=== PATIENT | female | born 1995 | race Caucasian/White ===

== ENCOUNTER 2016-09-12 21:02 | Emergency (ER) | payer OTHER ==
--- NOTE | 2016-09-12 22:06 | ER Document Report ---
ED Medical Screen (RME) - General Chief Complaint: Flank Pain Stated Complaint: URINARY ISSUE Time seen by provider: 22:05 Mode of Arrival: Ambulatory Information source: Patient Notes: 20-year-old female presents to ED for left flank pain for a week now. States she went to [facility] on and they told her it was just muscle pain but the pain is gotten worse since then. States she feels like she has to urinate frequently but does not go. Last menstrual period 08/27/2016 I have greeted and performed a rapid initial assessment of this patient. A comprehensive ED assessment and evaluation of the patient, analysis of test results and completion of medical decision making process will be conducted by an additional ED providers. TRAVEL OUTSIDE OF THE [place] IN LAST 30 DAYS: No - Related Data Allergies/Adverse Reactions: No Known Allergies Allergy (Verified 05/24/14 02:01) Past Medical History Pulmonary Medical History: Reports: Hx Asthma Neurological Medical History: Reports: Hx Migraine Musculoskeltal Medical History: Reports Hx Arthritis, Reports Hx Musculoskeletal Deformity Psychiatric Medical History: Reports: Hx Anxiety, Hx Attention Deficit Hyperactivity Disorder, Hx Bipolar Disorder, Hx Depression, Hx Obsessive Compulsive Disorder Past Surgical History: Reports: Hx Adenoidectomy, Hx Tonsillectomy - Immunizations Immunizations up to date: Yes Hx Diphtheria, Pertussis, Tetanus Vaccination: Yes Physical Exam - Vital signs Vitals: Temp Pulse Resp BP Pulse Ox 98.2 F 101 H 16 130/85 H 97 09/12/16 21:58 09/12/16 21:58 09/12/16 21:58 09/12/16 21:58 09/12/16 21:58 Course - Vital Signs Vital signs: Temp Pulse Resp BP Pulse Ox 98.2 F 101 H 16 130/85 H 97 09/12/16 21:58 09/12/16 21:58 09/12/16 21:58 09/12/16 21:58 09/12/16 21:58
[2016-09-12] MEDS ORDERED: IBUPROFEN 800 MG TABLET PO ONE (22:07)
[2016-09-12 22:32] LABS: ABSOLUTE EOSINOPHILS # (AUTO) 0.1 10^3/uL (0.0-0.6); ABSOLUTE LYMPHOCYTES (AUTO) 2.5 10^3/uL (0.5-4.7); ABSOLUTE MONOCYTES (AUTO) 0.6 10^3/uL (0.1-1.4); ABSOLUTE NEUT (AUTO) 8.9 10^3/uL (1.7-8.2); BASOPHILS % (AUTO) 0.3 % (0-2); EOSINOPHILS % (AUTO) 0.9 % (0-6); HEMATOCRIT 41.3 % (36.0-47.0); HEMOGLOBIN 13.7 g/dL (12.0-15.5); HGB HCT DIFFERENCE -0.2; LYMPHOCYTES % (AUTO) 20.5 % (13-45); MEAN CORPUSCULAR HEMOGLOBIN 29.1 pg (27.0-33.4); MEAN CORPUSCULAR HGB CONC 33.1 g/dL (32.0-36.0); MEAN CORPUSCULAR VOLUME 88 fl (80-97); RED BLOOD COUNT 4.71 10^6/uL (3.72-5.28); RED CELL DISTRIBUTION WIDTH 12.8 % (11.5-14.0); SEGMENTED NEUTROPHILS % (AUTO) 73.3 % (42-78); WHITE BLOOD COUNT 12.2 10^3/uL (4.0-10.5)
[2016-09-12 22:44] LABS: APPEARANCE,URINE SLIGHTLY-CLOUDY; BILIRUBIN,URINE NEGATIVE (NEGATIVE); GLUCOSE, URINE NEGATIVE (NEGATIVE); KETONES,URINE NEGATIVE (NEGATIVE); LEUKOCYTE ESTERASE,URINE MODERATE (NEGATIVE); NITRITE,URINE NEGATIVE (NEGATIVE); PROTEIN,URINE NEGATIVE (NEGATIVE); URINE SPECIFIC GRAVITY 1.025
[2016-09-12 22:52] LABS: ALANINE AMINOTRANSFERASE 33 U/L (9-52); ALBUMIN 4.6 g/dL (3.5-5.0); ALKALINE PHOSPHATASE 77 U/L (38-126); ANION GAP 12 (5-19); ASPARTATE AMINO TRANSFERASE 21 U/L (14-36); BILIRUBIN,TOTAL 0.5 mg/dL (0.2-1.3); BLOOD UREA NITROGEN 11 mg/dL (7-20); CARBON DIOXIDE 28 mmol/L (22-30); CHLORIDE 102 mmol/L (98-107); CREATININE RESULT 0.79 mg/dL (0.52-1.25); GLUCOSE 95 mg/dL (75-110); POTASSIUM 4.4 mmol/L (3.6-5.0); SODIUM 141.8 mmol/L (137-145); TOTAL PROTEIN 7.5 g/dL (6.3-8.2)
[2016-09-13] MEDS ORDERED: CEPHALEXIN 500 MG CAPSULE PO ONE (00:46)
[2016-09-13] MEDS ORDERED: HYDROCODONE/ACETAMINOPHEN 5-325 MG 6 TAB/DSPK PO PRN (00:47)
--- NOTE | 2016-09-13 00:47 | ER Document Report ---
ED General - General Mode of Arrival: Ambulatory Information source: Patient TRAVEL OUTSIDE OF THE [place] IN LAST 30 DAYS: No - HPI Patient complains to provider of: Left flank pain Onset: Other - 1 week ago Associated symptoms: Other - see above <DUSTIN LYLES - Last Filed: 09/13/16 01:57> <SHADIAJONA CARLOS - Last Filed: 09/13/16 03:25> - General Chief Complaint: Back Pain Stated Complaint: URINARY ISSUE Notes: 20 year old female with history of UTIs presents to the ED complaining of left flank pain that started 1 week ago. Patient was seen at [facility] 5 days ago and started on muscle relaxers that did not help. Patient is additionally complaining of urinary frequency with small amounts of urine, but states that her symptoms do no feel like her past UTIs because she is not experiencing any dysuria. Patient is also complaining of left knee pain. (DUSTIN LYLES) - Related Data Allergies/Adverse Reactions: No Known Allergies Allergy (Verified 05/24/14 02:01) Past Medical History - General Information source: Patient - Social History Smoking Status: Unknown if Ever Smoked Family History: Reviewed & Not Pertinent Pulmonary Medical History: Reports: Hx Asthma Neurological Medical History: Reports: Hx Migraine Renal/ Medical History: Reports: Other - UTIs Musculoskeltal Medical History: Reports Hx Arthritis, Reports Hx Musculoskeletal Deformity Psychiatric Medical History: Reports: Hx Anxiety, Hx Attention Deficit Hyperactivity Disorder, Hx Bipolar Disorder, Hx Depression, Hx Obsessive Compulsive Disorder Past Surgical History: Reports: Hx Adenoidectomy, Hx Tonsillectomy - Immunizations Immunizations up to date: Yes Hx Diphtheria, Pertussis, Tetanus Vaccination: Yes <DUSTIN LYLES - Last Filed: 09/13/16 01:57> Review of Systems - Review of Systems Constitutional: No symptoms reported EENT: No symptoms reported Cardiovascular: No symptoms reported Respiratory: No symptoms reported Gastrointestinal: No symptoms reported Genitourinary: See HPI, Frequency, Flank pain - left. denies: Dysuria Female Genitourinary: No symptoms reported Musculoskeletal: No symptoms reported Skin: No symptoms reported Hematologic/Lymphatic: No symptoms reported Neurological/Psychological: No symptoms reported -: Yes All other systems reviewed and negative <DUSTIN LYLES - Last Filed: 09/13/16 01:57> Physical Exam - Vital signs Interpretation: Normal - General General appearance: Alert In distress: None - HEENT Head: Normocephalic, Atraumatic Eyes: Normal Extraocular movements intact: Yes Pupils: PERRL - Respiratory Respiratory status: No respiratory distress Breath sounds: Normal - Cardiovascular Rhythm: Regular Heart sounds: Normal auscultation - Abdominal Inspection: Normal Distension: No distension Tenderness: Nontender - Back Back: Tender - Paraspinal tenderness to palpation on the left side at L4 and L5. Tenderness to palpation of the left SI joint.. No: Normal - Extremities General upper extremity: Normal inspection, Normal ROM General lower extremity: Normal inspection, Normal ROM - Neurological Neuro grossly intact: Yes Cognition: Normal Orientation: AAOx4 [place] Coma Scale Eye Opening: Spontaneous [place] Coma Scale Verbal: Oriented [place] Coma Scale Motor: Obeys Commands [place] Coma Scale Total: 15 Speech: Normal - Psychological Associated symptoms: Normal affect, Normal mood - Skin Skin Temperature: Warm Skin Moisture: Dry Skin Color: Normal <DUSTIN LYLES - Last Filed: 09/13/16 01:57> Course - Laboratory Result Diagrams: 09/12/16 22:15 09/12/16 22:15 <DUSTIN LYLES - Last Filed: 09/13/16 01:57> - Laboratory Result Diagrams: 09/12/16 22:15 09/12/16 22:15 <JONA RENO - Last Filed: 09/13/16 03:25> - Re-evaluation Re-evalutation: 09/13/16 Patient with reproducible left-sided back pain. No paresthesias or weakness. No urinary retention. Patient does have some bacteria and has a history of UTIs. She has had frequency but no burning. Culture will be sent. Patient was started on Keflex. She also be given pain medication for her back. Follow- up with PMD. Return if any worsening or concerning symptoms. No evidence for intraspinal pathology at this time. (JONA RENO) - Vital Signs Vital signs: Temp Pulse Resp BP Pulse Ox 97.3 F 91 14 121/73 98 09/13/16 00:59 09/13/16 00:59 09/13/16 00:59 09/13/16 00:59 09/13/16 00:59 (DUSTIN LYLES) (JONA RENO) - Laboratory Laboratory results interpreted by me: 09/12/16 09/12/16 22:15 22:15 WBC 12.2 H Absolute Neutrophils 8.9 H Urine Urobilinogen 2.0 H Ur Leukocyte Esterase MODERATE H (DUSTIN LYLES) (JONA RENO) Discharge <DUSTIN LYLES - Last Filed: 09/13/16 01:57> <JONA RENO - Last Filed: 09/13/16 03:25> - Discharge Clinical Impression: UTI (urinary tract infection) Qualifiers: Urinary tract infection type: site unspecified Hematuria presence: without hematuria Qualified Code(s): N39.0 - Urinary tract infection, site not specified Back pain Qualifiers: Back pain location: low back pain Chronicity: acute Back pain laterality: left Sciatica presence: without sciatica Qualified Code(s): M54.5 - Low back pain Condition: Stable Disposition: HOME, SELF-CARE Instructions: Urinary Tract Infection ([facility]), Low Back Pain ([facility]) Prescriptions: Oxycodone HCl/Acetaminophen [Percocet 5-325 mg Tablet] 1 - 2 tab PO Q6HP PRN # 20 tablet PRN Reason: Cephalexin Monohydrate [Keflex 500 mg Capsule] 500 mg PO QID #30 capsule Forms: Return to Work Scribe Attestation: 09/13/16 03:25 I personally performed the services described in the documentation, reviewed and edited the documentation which was dictated to the scribe in my presence, and it accurately records my words and actions. (JONA RENO) Scribe Documentation - Scribe Written by Panibe:: Niranjan Dasilva, 09/13/2016 2:04 acting as scribe for :: Shadia <DUSTIN LYLES - Last Filed: 09/13/16 01:57>
[2016-09-13 01:04] VITALS: BP 121/73
== END 2016-09-13 01:03 | disposition home or self-care (01) ==
LOC: ER 21:02
DX: N39.0 Urinary tract infection, site not specified (principal); M54.5 Low back pain; M54.9 Dorsalgia, unspecified; R39.198 Other difficulties with micturition; R35.0 Frequency of micturition
CPT/HCPCS: 36415; 80053; 81001; 84703; 85025; 87086; 99283

== ENCOUNTER 2016-09-16 03:27 | Emergency (ER) | payer OTHER ==
[2016-09-16 04:57] LABS: APPEARANCE,URINE SLIGHTLY-CLOUDY; BILIRUBIN,URINE NEGATIVE (NEGATIVE); GLUCOSE, URINE NEGATIVE (NEGATIVE); KETONES,URINE NEGATIVE (NEGATIVE); LEUKOCYTE ESTERASE,URINE LARGE (NEGATIVE); NITRITE,URINE NEGATIVE (NEGATIVE); PROTEIN,URINE NEGATIVE (NEGATIVE); URINE SPECIFIC GRAVITY 1.027; UROBILINOGEN,URINE NEGATIVE mg/dL (<2.0)
[2016-09-16] MEDS ORDERED: LEVOFLOXACIN 750 MG TABLET PO ONE (05:08)
--- NOTE | 2016-09-16 05:09 | ER Document Report ---
ED GI/ - General Chief Complaint: Flank Pain Stated Complaint: FLANK PLAIN, URINARY PROBLEMS Time seen by provider: 05:00 Notes: Patient is a 20-year-old female that comes emergency department for chief complaint of dysuria, she states that she also has pain in her left abdomen/ pelvic area, she also states that she started to get lower back pain. She states that she was treated recently for urinary tract infection and had been doing better until today. Patient states she typically gets 2-3 urinary tract infections a year. She denies any vaginal bleeding or discharge, any STD exposure. Past medical history of PCOS. TRAVEL OUTSIDE OF THE [place] IN LAST 30 DAYS: No - Related Data Allergies/Adverse Reactions: No Known Allergies Allergy (Verified 09/16/16 05:15) Past Medical History - General Information source: Patient - Social History Smoking Status: Current Every Day Smoker Chew tobacco use (# tins/day): No Frequency of alcohol use: Social Drug Abuse: None Lives with: Family Family History: Reviewed & Not Pertinent Patient has suicidal ideation: No Patient has homicidal ideation: No Pulmonary Medical History: Reports: Hx Asthma Neurological Medical History: Reports: Hx Migraine Renal/ Medical History: Denies: Hx Peritoneal Dialysis Musculoskeltal Medical History: Reports Hx Arthritis, Reports Hx Musculoskeletal Deformity Psychiatric Medical History: Reports: Hx Anxiety, Hx Attention Deficit Hyperactivity Disorder, Hx Bipolar Disorder, Hx Depression, Hx Obsessive Compulsive Disorder Past Surgical History: Reports: Hx Adenoidectomy, Hx Tonsillectomy - Immunizations Immunizations up to date: Yes Hx Diphtheria, Pertussis, Tetanus Vaccination: Yes Review of Systems - Review of Systems Constitutional: No symptoms reported EENT: No symptoms reported Cardiovascular: No symptoms reported Respiratory: No symptoms reported Gastrointestinal: See HPI Genitourinary: See HPI Female Genitourinary: See HPI Musculoskeletal: No symptoms reported Skin: No symptoms reported Hematologic/Lymphatic: No symptoms reported Neurological/Psychological: No symptoms reported Physical Exam - Vital signs Vitals: Temp Pulse Resp BP Pulse Ox 98.5 F 86 18 131/84 H 98 09/16/16 03:35 09/16/16 03:35 09/16/16 03:35 09/16/16 03:35 09/16/16 03:35 Interpretation: Normal - General General appearance: Appears well, Alert In distress: None - HEENT Head: Normocephalic, Atraumatic Eyes: Normal Pupils: PERRL - Respiratory Respiratory status: No respiratory distress Chest status: Nontender Breath sounds: Normal Chest palpation: Normal - Cardiovascular Rhythm: Regular Heart sounds: Normal auscultation Murmur: No - Abdominal Inspection: Normal Distension: No distension Bowel sounds: Normal Tenderness: Tender - Tender in the suprapubic and left lower quadrant areas. No : Moreira's sign, Guarding - Back Back: Normal, Nontender. No: Tender - Extremities General upper extremity: Normal inspection, Nontender, Normal color, Normal ROM , Normal temperature General lower extremity: Normal inspection, Nontender, Normal color, Normal ROM , Normal temperature, Normal weight bearing. No: Jaquan's sign - Neurological Neuro grossly intact: Yes Cognition: Normal Orientation: AAOx4 [place] Coma Scale Eye Opening: Spontaneous [place] Coma Scale Verbal: Oriented [place] Coma Scale Motor: Obeys Commands [place] Coma Scale Total: 15 Speech: Normal Motor strength normal: LUE, RUE, LLE, RLE Sensory: Normal - Psychological Associated symptoms: Normal affect, Normal mood - Skin Skin Temperature: Warm Skin Moisture: Dry Skin Color: Normal Course - Re-evaluation Re-evalutation: Patient appears somewhat uncomfortable on examination, soft abdomen except for the suprapubic and left lower quadrant area, patient declines a pelvic exam. Vital signs unremarkable. Urinalysis shows large leukocyte esterase, some white blood cells, some squamous epithelials. Culture placed. Patient will be treated because of her symptoms of dysuria. Ultrasound performed, shows no cyst or torsion, shows no other abnormality. Discussed with Dr. Ortiz per [facility] guidelines. Patient very satisfied with this workup. No significant hematuria, flank pain, or history of stones. Patient states she'll follow-up with primary care and return for any concerning or worsening symptoms including vomiting, fever, severe abdominal pain etc. - Vital Signs Vital signs: Temp Pulse Resp BP Pulse Ox 97.6 F 79 14 104/61 96 09/16/16 07:16 09/16/16 07:16 09/16/16 07:16 09/16/16 07:16 09/16/16 07:16 - Laboratory Laboratory results interpreted by me: 09/16/16 04:41 Ur Leukocyte Esterase LARGE H Discharge - Discharge Clinical Impression: Dysuria, Lower abdominal pain Disposition: HOME, SELF-CARE Additional Instructions: Ultrasound shows no acute abnormalities. We have a urine culture growing in our lab, take the antibiotic as directed, take pain medication if needed. Return the emergency department immediately for any concerning or worsening symptoms including fever, vomiting, severe pain, etc. Prescriptions: Hydrocodone/Acetaminophen [Vidalia 5-325 mg Tablet] 1 - 2 tab PO ASDIR #12 tablet Levofloxacin [Levaquin 750 mg Tablet] 750 mg PO DAILY #5 tablet Referrals: BURAK KOWALSKI MD [Primary Care Provider] - Follow up as needed
[2016-09-16] MEDS ORDERED: OXYCODONE-ACETAMINOPHEN 5-325 MG TABLET PO ONE (05:19)
[2016-09-16 07:19] VITALS: BP 104/61
== END 2016-09-16 07:20 | disposition home or self-care (01) ==
LOC: ER 03:27
DX: E28.2 Polycystic ovarian syndrome (principal); R10.2 Pelvic and perineal pain; R10.814 Left lower quadrant abdominal tenderness; R30.0 Dysuria; J45.909 Unspecified asthma, uncomplicated; F17.200 Nicotine dependence, unspecified, uncomplicated; Z87.440 Personal history of urinary (tract) infections
CPT/HCPCS: 76830; 81001; 81025; 87086; 93976; 99284

== ENCOUNTER 2016-11-14 01:09 | Emergency (ER) | payer OTHER ==
[2016-11-14 01:54] VITALS: BP 123/67
== END 2016-11-14 06:43 | disposition left against medical advice (07) ==
LOC: ER 01:09
DX: Z53.9 Procedure and treatment not carried out, unspecified reason (principal); H92.02 Otalgia, left ear

== ENCOUNTER 2017-06-17 21:10 | Emergency (ER) | payer SELFPAY ==
[2017-06-17 21:14] VITALS: BP 132/89
--- NOTE | 2017-06-17 22:02 | ER Document Report ---
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 Patient states that the pain was not immediate, but started building up thereafter. Patient states that the pain is primarily to the left wrist and radiates distally on occasion. Patient states that she can still move her wrist and fingers range of motion without any difficulties. She has not taken anything for her pain. Patient has occasional tingling into her fingers. patient denies any drug allergies. She admits to smoking but denies any IV drug use. Denies any headache, fever, chest pain, palpitations, syncope , cough, shortness of breath, wheeze, dyspnea, abdominal pain, nausea/vomiting/ diarrhea, muscle paralysis/weakness, or rash. - ROS Notes: REVIEW OF SYSTEMS: CONSTITUTIONAL : Denies fever, chills, or sweats. Denies recent illness. EENT: Denies eye, ear, throat, or mouth pain or symptoms. Denies nasal or sinus congestion or discharge. Denies throat, tongue, or mouth swelling or difficulty swallowing. CARDIOVASCULAR: Denies chest pain. Denies palpitations RESPIRATORY: Denies cough, cold, or chest congestion. Denies shortness of breath, difficulty breathing, or wheezing. MUSCULOSKELETAL: see hpi SKIN: Denies rash, lesions or sores. NEUROLOGICAL: Denies confusion or altered mental status. Denies passing out or loss of consciousness. Denies dizziness or lightheadedness. Denies headache. Denies weakness or paralysis or loss of use of either side. Denies problems with gait or speech. Denies sensory loss, numbness, or tingling. ALL OTHER SYSTEMS REVIEWED AND NEGATIVE. Dictation was performed using [employer] voice recognition software - REPRODUCTIVE Reproductive: DENIES: : - DERM Skin Color: Normal Past Medical History - Social History Smoking Status: Current Every Day Smoker Family History: Reviewed & Not Pertinent Patient has suicidal ideation: No Patient has homicidal ideation: No Pulmonary Medical History: Reports: Hx Asthma Neurological Medical History: Reports: Hx Migraine Renal/ Medical History: Reports: Hx Kidney Stones. Denies: Hx Peritoneal Dialysis Musculoskeltal Medical History: Reports Hx Arthritis, Reports Hx Musculoskeletal Deformity Psychiatric Medical History: Reports: Hx Anxiety, Hx Attention Deficit Hyperactivity Disorder, Hx Bipolar Disorder, Hx Depression, Hx Obsessive Compulsive Disorder Past Surgical History: Reports: Hx Adenoidectomy, Hx Tonsillectomy - Immunizations Immunizations up to date: Yes Hx Diphtheria, Pertussis, Tetanus Vaccination: Yes Vertical Provider Document - CONSTITUTIONAL Agree With Documented VS: Yes Notes: PHYSICAL EXAMINATION: GENERAL: Well-appearing, well-nourished and in no acute distress. Neck: Nontender. FROM. LUNGS: Breath sounds clear to auscultation bilaterally and equal. No wheezes rales or rhonchi. HEART: Regular rate and rhythm without murmurs, rubs, gallops. Musculoskeletal: Lt wrist: FROM to passive/active. Strength 5+/5. No obvious swelling or ecchymosis noted. No obvious deformity. + tenderness to the distal forearm/wrist b/l. + herber. N/V intact distal. No scaphoid tenderness. No bony tenderness of the hands/fingers or prox to the distal wrist. Extremities: No cyanosis, clubbing, or edema b/l. Peripheral pulses 2+. Capillary refill less than 3 seconds. NEUROLOGICAL: Normal speech, normal gait. Normal sensory, motor exams PSYCH: Normal mood, normal affect. SKIN: Warm, Dry, normal turgor, no rashes or lesions noted. - INFECTION CONTROL TRAVEL OUTSIDE OF THE [place] IN LAST 30 DAYS: No - RESPIRATORY O2 Sat by Pulse Oximetry: 100 Course - Re-evaluation Re-evalutation: 06/17/17 22:39 Patient is an afebrile, well-hydrated, 21-year-old female who presents to the ED with left wrist pain, I suspect de Quervain's tenosynovitis based on H&P today. Vitals are stable. PE is otherwise unremarkable for any neurovascular compromise, obvious ligament/tendon rupture, obvious fracture or dislocation. X -ray was unremarkable for any acute pathology. I will send her home with a prescription for Voltaren gel. Conservative measures otherwise for symptoms. Recheck with your PCM later this week. Consider consult with Ortho/physical therapy for ongoing/worsening symptoms. Patient is in agreement. - Vital Signs Vital signs: Temp Pulse Resp BP Pulse Ox 91 18 132/89 H 100 06/17/17 21:11 06/17/17 21:11 06/17/17 21:11 06/17/17 21:11 Discharge - Discharge Clinical Impression: Left wrist pain Condition: Stable Disposition: HOME, SELF-CARE Instructions: Wrist Sprain ([facility]), Ice & Elevation ([facility]), Warm Packs ([facility]) Additional Instructions: Rest, Ice, Compression, Elevation Tylenol/ibuprofen as needed Light stretches daily Strength exercises as able Moist heat and massage may help F/u with your PCP in 3-5 days for a recheck Consider consult(s) with Orthopedics/physical therapy for ongoing/worsening symptoms Return to the ED with any worsening symptoms and/or development of fever, headache, chest pain, palpitations, syncope, shortness of breath, trouble breathing, abdominal pain, n/v/d, muscle weakness/paralysis, numbness/tingling, swelling, redness, or other worsening symptoms that are concerning to you. Prescriptions: Diclofenac Sodium [Voltaren] 4 gm TP QID PRN #100 gel..gm. PRN Reason: Forms: Elevated Blood Pressure, Smoking Cessation Education Referrals: BURAK KOWALSKI MD [Primary Care Provider] - Follow up as needed [facility] [Provider Group] - Follow up as needed
--- NOTE | 2017-06-17 22:28 | RADIOLOGY REPORT (SQ) ---
EXAM DESCRIPTION: WRIST LEFT 3 VIEWS COMPLETED DATE/TIME: 06/17/2017 10:20 pm REASON FOR STUDY: left wrist pain COMPARISON: None. NUMBER OF VIEWS: Three views. TECHNIQUE: AP, lateral, and oblique radiographic images acquired of the left wrist. LIMITATIONS: None. FINDINGS: MINERALIZATION: Normal. BONES: No acute fracture or dislocation. No worrisome bone lesions. Normal alignment. SOFT TISSUES: No soft tissue swelling. No foreign body. OTHER: No other significant finding. IMPRESSION: NEGATIVE STUDY OF THE LEFT WRIST. NO RADIOGRAPHIC EVIDENCE OF ACUTE INJURY. TECHNICAL DOCUMENTATION: JOB ID: [id number] [employer]- All Rights Reserved
== END 2017-06-17 23:00 | disposition home or self-care (01) ==
LOC: ER 21:10
DX: M25.532 Pain in left wrist (principal); R20.2 Paresthesia of skin; F17.200 Nicotine dependence, unspecified, uncomplicated; J45.909 Unspecified asthma, uncomplicated
CPT/HCPCS: 99283

== ENCOUNTER 2018-04-10 03:46 | Emergency (ER) | payer SELFPAY ==
[2018-04-10 04:02] VITALS: BP 129/89
--- NOTE | 2018-04-10 06:14 | ER Document Report ---
ED ENT <LUZ GARCIA - Last Filed: 04/10/18 06:35> - General TRAVEL OUTSIDE OF THE [place] IN LAST 30 DAYS: No <VALERIA SEGURA - Last Filed: 04/10/18 06:39> - General Chief Complaint: Ear Pain Stated Complaint: EAR PAIN Time Seen by Provider: 04/10/18 06:05 Notes: 22-year-old female patient complaining of over 3 week history of right ear discomfort. She reports it started as a pressure type discomfort and is gotten progressively worse over time. It got acutely worse last night and she has noted that her hearing seems to have decreased some. She states that her father put some earwax removal drops in the ear last night, and then placed an ear pain or numbing solution which did not help and possibly hurt worse. She states she has not used Q-tips in over a year. She has not been swimming or in water or pools. There is no fever, nausea or vomiting. (LUZ GARCIA) - Related Data Allergies/Adverse Reactions: No Known Allergies Allergy (Verified 09/16/16 05:15) Past Medical History - General Information source: Patient - Social History Smoking Status: Current Every Day Smoker Cigarette use (# per day): Yes - 1/2ppd Frequency of alcohol use: Social - x2 a week Family History: Reviewed & Not Pertinent Patient has suicidal ideation: No Patient has homicidal ideation: No Pulmonary Medical History: Reports: Hx Asthma Neurological Medical History: Reports: Hx Migraine - "in the past" Renal/ Medical History: Reports: Hx Kidney Stones Musculoskeletal Medical History: Reports Hx Arthritis, Reports Hx Musculoskeletal Deformity Psychiatric Medical History: Reports: Hx Anxiety, Hx Attention Deficit Hyperactivity Disorder, Hx Bipolar Disorder, Hx Depression, Hx Obsessive Compulsive Disorder Past Surgical History: Reports: Hx Adenoidectomy, Hx Tonsillectomy - Immunizations Immunizations up to date: Yes Hx Diphtheria, Pertussis, Tetanus Vaccination: Yes <VALERIA SEGURA - Last Filed: 04/10/18 06:39> Review of Systems - Review of Systems Constitutional: No symptoms reported EENT: See HPI, Ear pain - right Cardiovascular: No symptoms reported Respiratory: No symptoms reported Gastrointestinal: No symptoms reported Genitourinary: No symptoms reported Female Genitourinary: No symptoms reported Musculoskeletal: No symptoms reported Skin: No symptoms reported Hematologic/Lymphatic: No symptoms reported Neurological/Psychological: No symptoms reported -: Yes All other systems reviewed and negative <VALERIA SEGURA - Last Filed: 04/10/18 06:39> Physical Exam - HEENT Head: Normocephalic, Atraumatic Eyes: Normal Pupils: PERRL External canal: Other - Right ear external canal is tender to manipulate, and painful to insert the ear speculum. There is no definite inflamed area, temples , or other lesions noted. There is some dry wax. The canal in general appears dry and there is no evidence of fungal type infection noted on the TM. Tympanic membrane: Other - Both TMs are extensively scarred consistent with childhood infections and perforations. Pharynx: Normal Neck: Normal. No: Lymphadenopathy <LUZ GARCIA - Last Filed: 04/10/18 06:35> <VALERIA SEGURA - Last Filed: 04/10/18 06:39> - Vital signs Vitals: Temp Pulse Resp BP Pulse Ox 99.3 F 111 H 16 129/89 H 97 04/10/18 03:51 04/10/18 03:51 04/10/18 03:51 04/10/18 03:51 04/10/18 03:51 - Notes Notes: Physical Exam: General: Alert, appears well. HEENT: Normocephalic. Atraumatic. PERRL. Extraocular movements intact. Oropharynx clear. Neck: Supple. Non-tender. Respiratory: No respiratory distress. Clear and equal breath sounds bilaterally. Cardiovascular: Regular rate and rhythm. Abdominal: Obese. Non-tender. No distension. Normal Bowel Sounds. Back: Non-tender. No deformity or step off. Extremities: Moves all four extremities. Upper extremities: Normal inspection. Normal ROM. Lower extremities: Normal inspection. No edema. Normal ROM. Neurological: Normal cognition. AAOx4. Normal speech. Psychological: Normal affect. Normal Mood. Skin: Warm. Dry. Normal color. (VALERIA SEGURA) - Vital Signs Vital signs: Temp Pulse Resp BP Pulse Ox 99.3 F 111 H 16 129/89 H 97 04/10/18 03:51 04/10/18 03:51 04/10/18 03:51 04/10/18 03:51 04/10/18 03:51 Discharge <LUZ GARCIA - Last Filed: 04/10/18 06:35> <VALERIA SEGURA - Last Filed: 04/10/18 06:39> - Discharge Clinical Impression: Otitis externa of right ear Qualifiers: Otitis externa type: unspecified type Chronicity: acute Qualified Code(s): H60.501 - Unspecified acute noninfective otitis externa, right ear Condition: Stable Disposition: HOME, SELF-CARE Additional Instructions: Otitis Externa You have otitis externa -- an infection of the outer ear canal. This can be very painful. It's sometimes called "swimmer's ear," because it often occurs after prolonged water exposure. Many things, such as earwax and dirt in the ear, can contribute to it. The usual treatment is antibiotic/antiinflammatory ear drops. Occasionally , a wick will be placed in the ear to draw in the medicine. If the infection is severe, an oral antibiotic may be prescribed. Pain medication is often needed. Avoid getting water in the ear. Outer ear infections often take longer to heal than you might expect. Some tenderness and ache in the ear may persist for about two weeks. See your physician if you fail to improve as expected. Call the doctor at once if you develop fever, increasing swelling (particularly if it makes your ear "poke out"), severe headache, stiff neck, or decreased hearing. Place 4 drops of the antibiotic eardrop suspension into the right ear and place cotton wick 4 times daily. Take the antibiotics as prescribed. Try Tylenol and ibuprofen or Aleve for pain relief. Follow-up with a local ear nose and throat doctor if not improving. Prescriptions: Cephalexin Monohydrate [Keflex 500 mg Capsule] 500 mg PO QID #28 capsule Referrals: BURAK KOWALSKI MD [Primary Care Provider] - Follow up as needed [facility] [Provider Group] - Follow up as needed Scribe Attestation: 04/10/18 06:29 I personally performed the services described in the documentation, reviewed and edited the documentation which was dictated to the scribe in my presence, and it accurately records my words and actions. (LUZ GARCIA) Scribe Documentation - Scribe Written by Niranjan:: Niranjan Horton, 04/10/2018 0639 acting as scribe for :: Jina <VALERIA SEGURA - Last Filed: 04/10/18 06:39>
[2018-04-10] MEDS ORDERED: NEOMY SULF/POLYMYX B SULF/HC OTIC SUSP 10 ML AD ONE (06:31)
[2018-04-10] MEDS ORDERED: CEPHALEXIN 500 MG CAPSULE PO ONE (06:32)
== END 2018-04-10 06:45 | disposition home or self-care (01) ==
LOC: ER 03:46
DX: H60.501 Unspecified acute noninfective otitis externa, right ear (principal); F17.210 Nicotine dependence, cigarettes, uncomplicated; Z87.442 Personal history of urinary calculi
CPT/HCPCS: 99282; J3490

== ENCOUNTER 2018-11-13 18:15 | Emergency (ER) | payer SELFPAY ==
[2018-11-13] MEDS ORDERED: DIPH/PERTUSS(ACELL)/TETANUS VAC/PF 0.5 ML SYR (>=10YO) IM ONE (19:09)
--- NOTE | 2018-11-13 19:09 | ER Document Report ---
ED Medical Screen (RME) - General Chief Complaint: Abdominal Pain Stated Complaint: POSSIBLE ABSCESS Time Seen by Provider: 11/13/18 19:05 Primary Care Provider: BURAK KOWALSKI MD [Primary Care Provider] - Follow up as needed Notes: Patient is a 22-year-old female that presents to the emergency department for chief complaint of skin abscess. Patient started this on for about a week now, she did try lancing at home without success, she is not up-to-date with her tetanus as far she knows. ROS: Other than noted above, the 12 point review of systems was reviewed with the patient and were negative, all pertinent findings are included in the HPI. PHYSICAL EXAMINATION: Vital signs reviewed. GENERAL: Well-appearing, well-nourished and in no acute distress. HEAD: Atraumatic, normocephalic. EYES: Pupils equal round extraocular movements intact, conjunctiva are normal. ENT: Nares patent NECK: Normal range of motion CV: Heart rate tachycardic, regular rhythm LUNGS: No respiratory distress Musculoskeletal: Normal range of motion NEUROLOGICAL: Normal speech PSYCH: Normal mood, normal affect. Skin: There is a 2-1/2 x 2-1/2 cm abscess noted on the patient's right abdominal wall, fluctuance palpated at the center tenderness to palpation MDM: Patient seen and examined for rapid initial assessment. Vital signs reviewed. A comprehensive ED assessment and evaluation of the patient, analysis of test results and completion of the medical decision making process will be conducted by additional ED providers. *Note is created using voice recognition software and may contain spelling, syntax or grammatical errors. TRAVEL OUTSIDE OF THE [place] IN LAST 30 DAYS: No - Related Data Allergies/Adverse Reactions: No Known Allergies Allergy (Verified 11/13/18 18:16) Past Medical History Pulmonary Medical History: Reports: Hx Asthma Neurological Medical History: Reports: Hx Migraine - "in the past" Renal/ Medical History: Reports: Hx Kidney Stones. Denies: Hx Peritoneal Dialysis Musculoskeltal Medical History: Reports Hx Arthritis, Reports Hx Musculoskeletal Deformity Psychiatric Medical History: Reports: Hx Anxiety, Hx Attention Deficit Hyperactivity Disorder, Hx Bipolar Disorder, Hx Depression, Hx Obsessive Compulsive Disorder Past Surgical History: Reports: Hx Adenoidectomy, Hx Tonsillectomy - Immunizations Immunizations up to date: Yes Hx Diphtheria, Pertussis, Tetanus Vaccination: Yes Physical Exam - Vital signs Vitals: Temp Pulse Resp BP Pulse Ox 98.6 F 122 H 18 141/90 H 97 11/13/18 18:25 11/13/18 18:25 11/13/18 18:25 11/13/18 18:25 11/13/18 18:25 Course - Vital Signs Vital signs: Temp Pulse Resp BP Pulse Ox 98.6 F 122 H 18 141/90 H 97 11/13/18 18:25 11/13/18 18:25 11/13/18 18:25 11/13/18 18:25 11/13/18 18:25 Doctor's Discharge - Discharge Referrals: BURAK KOWALSKI MD [Primary Care Provider] - Follow up as needed
[2018-11-13] MEDS ORDERED: LIDOCAINE 1% INJ-PF (10 MG/ML) 30 ML SDV ONE (20:41)
[2018-11-13] MEDS ORDERED: CEPHALEXIN 500 MG CAPSULE PO ONE (21:40)
[2018-11-13] MEDS ORDERED: SULFAMETHOXAZOLE/TRIMETHOPRIM 800-160 MG TABLET PO ONE (21:40)
--- NOTE | 2018-11-13 21:43 | ER Document Report ---
ED Skin Rash/Insect Bite/Abscs - General Chief Complaint: Abdominal Pain Stated Complaint: POSSIBLE ABSCESS Time Seen by Provider: 11/13/18 19:05 Primary Care Provider: BURAK KOWALSKI MD [PEDIATRICS] - Follow up as needed Notes: Patient is a 22-year-old female that comes to the emergency department for chief complaint of abscess over the right upper abdomen for almost 1 week. She states she has had a lot of abscesses in the past, usually on her lower abdomen, she is always able to squeeze these open, expressed some, and then they resolve. This when she has been squeezing without any success. There is spr eading redness around the area. She denies fever/chills, nausea/vomiting, or history of diabetes. Tetanus is not up-to-date. She denies any other complaints. TRAVEL OUTSIDE OF THE [place] IN LAST 30 DAYS: No - Related Data Allergies/Adverse Reactions: No Known Allergies Allergy (Verified 11/13/18 19:12) Past Medical History - General Information source: Patient - Social History Smoking Status: Current Every Day Smoker Chew tobacco use (# tins/day): No Frequency of alcohol use: None Drug Abuse: None Lives with: Family Family History: Reviewed & Not Pertinent Patient has suicidal ideation: No Patient has homicidal ideation: No Pulmonary Medical History: Reports: Hx Asthma Neurological Medical History: Reports: Hx Migraine - "in the past" Renal/ Medical History: Reports: Hx Kidney Stones. Denies: Hx Peritoneal Dialysis Musculoskeletal Medical History: Reports Hx Arthritis, Reports Hx Musculoskeletal Deformity Psychiatric Medical History: Reports: Hx Anxiety, Hx Attention Deficit Hyperactivity Disorder, Hx Bipolar Disorder, Hx Depression, Hx Obsessive Compulsive Disorder Past Surgical History: Reports: Hx Adenoidectomy, Hx Tonsillectomy - Immunizations Immunizations up to date: Yes Hx Diphtheria, Pertussis, Tetanus Vaccination: Yes Review of Systems - Review of Systems Constitutional: No symptoms reported EENT: No symptoms reported Cardiovascular: No symptoms reported Respiratory: No symptoms reported Gastrointestinal: No symptoms reported Genitourinary: No symptoms reported Female Genitourinary: No symptoms reported Musculoskeletal: No symptoms reported Skin: See HPI Hematologic/Lymphatic: No symptoms reported Neurological/Psychological: No symptoms reported Physical Exam - Vital signs Vitals: Temp Pulse Resp BP Pulse Ox 98.6 F 122 H 18 141/90 H 97 11/13/18 18:25 11/13/18 18:25 11/13/18 18:25 11/13/18 18:25 11/13/18 18:25 - Notes Notes: GENERAL: Alert, interacts well. No acute distress. HEAD: Normocephalic, atraumatic. EYES: Pupils equal, round, and reactive to light. Extraocular movements intact. ENT: Oral mucosa moist, tongue midline. Oropharynx unremarkable. Airway patent. Nares patent, no nasal septal hematoma, TM's intact. NECK: Full range of motion. Supple. Trachea midline. LUNGS: Clear to auscultation bilaterally, no wheezes, rales, or rhonchi. No respiratory distress. HEART: Regular rate and rhythm. No murmur ABDOMEN: Soft, non-tender. Non-distended. Bowel sounds present in all 4 quadrants. GENITOURINARY: Deferred EXTREMITIES: Moves all 4 extremities spontaneously. No edema, normal radial and dorsalis pedis pulses bilaterally. No cyanosis. BACK: no cervical, thoracic, lumbar midline tenderness. No saddle anesthesia, normal distal neurovascular exam. NEUROLOGICAL: Alert and oriented x3. Normal speech. [cranial nerves II through XII grossly intact]. PSYCH: Normal affect, normal mood. SKIN: Small abscess in the right upper quadrant of the abdomen, some surrounding erythema, the area is indurated and mildly fluctuant. Remaining skin exam is unremarkable. Course - Re-evaluation Re-evalutation: Small area in the right upper quadrant with an abdominal abscess which was superficial. Mild surrounding cellulitis. Well-appearing patient with no fever, vomiting. The abscess was cleaned, drained, patient placed on antibiotics, discussed expectations, follow-up, and return precautions. - Vital Signs Vital signs: Temp Pulse Resp BP Pulse Ox 97.5 F 78 17 124/76 97 11/13/18 22:23 11/13/18 22:23 11/13/18 22:23 11/13/18 22:23 11/13/18 22:23 Procedures - Incision and Drainage Right upper abdomen Type: Single Anesthetic type: 1% Lidocaine mL's of anesthetic: 8 Blade size: 11 I&D procedure: Shurclens applied, Sterile dressing applied Incision Method: Incision made by scalpel Amount/type of drainage: Moderate purulent drainage, some bleeding Discharge - Discharge Clinical Impression: Cellulitis and abscess of unspecified site Condition: Stable Disposition: HOME, SELF-CARE Additional Instructions: The abscess has been opened and drained. Keep clean, clean with soap and water, place absorbing dressing over the area. Take antibiotics as prescribed. Follow-up with primary care. Return if you worsen including spreading redness, fever/chills, nausea/vomiting, or any other concerning or worsening symptoms. Prescriptions: Cephalexin Monohydrate [Keflex 500 mg Capsule] 500 mg PO QID #28 capsule Sulfamethoxazole/Trimethoprim [Bactrim Ds Tablet] 1 each PO BID #14 tablet Referrals: BURAK KOWALSKI MD [PEDIATRICS] - Follow up as needed
[2018-11-13 22:26] VITALS: BP 124/76
== END 2018-11-13 22:27 | disposition home or self-care (01) ==
LOC: ER 18:15
DX: L02.211 Cutaneous abscess of abdominal wall (principal); L03.311 Cellulitis of abdominal wall; J45.909 Unspecified asthma, uncomplicated; F17.200 Nicotine dependence, unspecified, uncomplicated
CPT/HCPCS: 99283; 90471; 90715; 10060; J3490